=== PATIENT | male | born 1950 | race Caucasian/White ===

== ENCOUNTER 2016-10-02 10:38 | Day surgery (SDC) | payer BC, OTHER ==
[~2016-10-02 10:38] MED LIST: ACETAMINOPHEN 500 MG TAB PO ONE; PREGABALIN 75 MG CAP PO ONE; ceFAZolin 2 GM/DEXTROSE 100 ML IV ONE
[2016-10-02] MEDS ORDERED: ACETAMINOPHEN 500 MG TAB ONE (11:19)
[2016-10-02] MEDS ORDERED: CEFAZOLIN 2 GM/DEXTROSE/100 ML BAG IV ONE (11:20)
[2016-10-02] MEDS ORDERED: PREGABALIN 75 MG CAP ONE (11:20)
[2016-10-02] MEDS ORDERED: MIDAZOLAM 2 MG/2 ML VIAL ONE (15:25)
[2016-10-02] MEDS ORDERED: PROPOFOL/EMULSION 500 MG/50 ML BOTTLE IV ONE (15:27)
[2016-10-02] MEDS ORDERED: SCOPOLAMINE HYDROBROMIDE 1.5 MG PATCH TD ONE (15:29)
[2016-10-02] MEDS ORDERED: OXYCODONE/APAP 5/325 TAB PO PRN (15:34)
[2016-10-02] MEDS ORDERED: BUPIVACAINE/EPI 0.25% 30 ML SDV ONE (15:39)
[2016-10-02] MEDS ORDERED: SKIN ADHESIVE (DERMABOND) 1 EACH TP ONE (15:40)
[2016-10-02] MEDS ORDERED: fentaNYL 250 MCG/5 ML INJ ONE (15:53)
[2016-10-02] MEDS ORDERED: fentaNYL 100 MCG/2 ML INJ ONE ×2 (19:09→19:40)
[2016-10-02] MEDS ORDERED: OXYCODONE/APAP 5/325 TAB ONE (20:08)
== END 2016-10-02 21:44 | disposition home or self-care (01) ==
LOC: FSGY 10:38
PROVIDERS: ATTEND Orthopaedic Surgery Sports Medicine
PROC: 0LQM0ZZ Repair Left Upper Leg Tendon, Open Approach (ICD-10-PCS; principal; 2016-10-02 11:45)
DX: S76.392A Other specified injury of muscle, fascia and tendon of the posterior muscle group at thigh level, left thigh, initial encounter (principal); X50.9XXA Other and unspecified overexertion or strenuous movements or postures, initial encounter
CPT/HCPCS: C1713; J0690; J2250; J2704; J3010; L1832